=== PATIENT | female | born 1970 | race Caucasian/White ===

== ENCOUNTER → 2019-05-11 14:00 | Outpatient (CLI) | payer OTHER, SELFPAY ==
--- NOTE | 2019-05-11 | DI.RAD.S_ITS ---
PROCEDURE: XR LUMBAR SPINE 2-3V INDICATIONS: Acute midline low back pain TECHNIQUE: 3 views of the lumbar spine were acquired. COMPARISON: None. FINDINGS: Bones: 5 qsv-[id number]-cchsero vertebrae are present. Mild levocurvature. Trace multilevel retrolisthesis. Trace spondylolisthesis L4-L5. Multilevel disc degeneration, most notably at the L4-L5 and L5-S1 levels where there is moderate facet joint arthropathy. No vertebral body compression fractures. No suspicious bony lesions. Soft tissues: Overlying bowel gas pattern is normal. No suspicious soft tissue calcifications. IMPRESSION: Multilevel degenerative change. Dictated by: Jamie Montgomery [facility] Interpreted: Jeronimo Segura MD on 05/11/2019 at 17:01 Approved by: Jeronimo Segura M.D. on 05/12/2019 at 9:03
== END ==
PROVIDERS: Visit Provider Nurse Practitioner Family
DX: M54.5 Low back pain (principal); M47.26 Other spondylosis with radiculopathy, lumbar region; M47.27 Other spondylosis with radiculopathy, lumbosacral region
CPT/HCPCS: 72100

== ENCOUNTER → 2019-09-14 11:40 | Outpatient (CLI) | payer OTHER, SELFPAY ==
--- NOTE | 2019-09-14 | DI.MG.S_ITS ---
BILATERAL DIGITAL SCREENING MAMMOGRAM 3D/2D WITH CAD: 09/14/2019 CLINICAL: Routine screening. Family history of breast cancer. Comparison is made to exams dated: 09/04/2015 mammogram - [facility], 06/14/2013 mammogram, and 07/15/2011 mammogram - [facility]. The tissue of both breasts is heterogeneously dense. This may lower the sensitivity of mammography. Current study was also evaluated with a Computer Aided Detection (CAD) system. There are grouped fine calcifications in the left breast at 12 o'clock posterior depth. No other significant masses, calcifications, or other findings are seen in either breast. IMPRESSION: INCOMPLETE: NEEDS ADDITIONAL IMAGING EVALUATION The grouped fine calcifications in the left breast are indeterminate. Mediolateral, spot magnification, and additional views are recommended. This exam was interpreted at Station ID: [id number]. NOTE: For mammograms, a report in lay terms will be sent to the patient. Approximately 15% of breast malignancies will not be visualized mammographically. In the management of a palpable breast mass, a negative mammogram must not discourage biopsy of a clinically suspicious lesion. Electronically Signed By: Al brito/knenedi:09/14/2019 15:48:10 letter sent: Additional Imaging Needed ACR BI-RADS Category 0: Incomplete 3340F
== END ==
PROVIDERS: Visit Provider Obstetrics & Gynecology
DX: Z12.31 Encounter for screening mammogram for malignant neoplasm of breast (principal); Z80.3 Family history of malignant neoplasm of breast
CPT/HCPCS: 77063; 77067

== ENCOUNTER → 2019-11-23 10:30 | Outpatient (CLI) | payer OTHER, SELFPAY ==
--- NOTE | 2019-11-23 10:35 | DI.MG.S_ITS ---
UNILATERAL LEFT DIGITAL DIAGNOSTIC MAMMOGRAM 3D/2D WITH ADDITIONAL VIEWS: 11/23/2019 CLINICAL: Additional evaluation requested from prior study. Comparison is made to exams dated: 09/14/2019 mammogram, 09/04/2015 mammogram - [facility], 06/14/2013 mammogram, and 07/15/2011 mammogram - [facility]. The tissue of left breast is heterogeneously dense. This may lower the sensitivity of mammography. There are grouped fine pleomorphic calcifications in the left breast at 1 o'clock middle depth. These are seen in additional views. These calcifications are new compared to 2014. No other significant masses or calcifications are seen in the breast. IMPRESSION: SUSPICIOUS OF MALIGNANCY The grouped fine pleomorphic calcifications in the left breast are suspicious of malignancy. A stereotactic biopsy is recommended. Exam findings and recommendation were reviewed with the patient by Dr. Amado Albarran. This exam was interpreted at Station ID: [id number]. NOTE: For mammograms, a report in lay terms will be sent to the patient. Approximately 15% of breast malignancies will not be visualized mammographically. In the management of a palpable breast mass, a negative mammogram must not discourage biopsy of a clinically suspicious lesion. Electronically Signed By: Scotty Dickerson M.D. slc/:11/23/2019 11:54:01 letter sent: Biopsy Required ACR BI-RADS Category 4: Suspicious abnormality 3344F
== END ==
PROVIDERS: Visit Provider Obstetrics & Gynecology
DX: R92.8 Other abnormal and inconclusive findings on diagnostic imaging of breast (principal); R92.1 Mammographic calcification found on diagnostic imaging of breast
CPT/HCPCS: 77065; G0279

== ENCOUNTER → 2020-04-04 08:59 | Outpatient (CLI) | payer OTHER, SELFPAY ==
--- NOTE | 2020-04-04 | DI.RAD.S_ITS ---
PROCEDURE: XR CHEST 2V INDICATIONS: Cough TECHNIQUE: 2 views of the chest were acquired. COMPARISON: None. FINDINGS: Surgical changes and devices: None. Lungs and pleura: Lungs are clear. No pleural effusions or pneumothorax. Mediastinum: Mediastinal contours are normal. Heart size is normal. Bones and chest wall: No suspicious bony abnormalities. Soft tissues appear unremarkable. IMPRESSION: No acute cardiopulmonary abnormalities or focal airspace disease. Dictated by: Derrek Kebede M.D. on 04/04/2020 at 9:35 Approved by: Derrek Kebede M.D. on 04/04/2020 at 9:36
== END ==
PROVIDERS: Referring Provider Family Medicine; Visit Provider Family Medicine
DX: R05 Cough (principal)
CPT/HCPCS: 71046

== ENCOUNTER → 2020-10-03 10:22 | Outpatient (CLI) | payer OTHER, SELFPAY ==
--- NOTE | 2020-10-03 | DI.MG.S_ITS ---
BILATERAL DIGITAL SCREENING MAMMOGRAM 3D/2D WITH CAD: 10/03/2020 CLINICAL: Routine screening. Family history of breast cancer. Comparison is made to exams dated: 09/14/2019 mammogram, 09/04/2015 mammogram - [facility], and 06/14/2013 mammogram - [facility]. The tissue of both breasts is heterogeneously dense. This may lower the sensitivity of mammography. Current study was also evaluated with a Computer Aided Detection (CAD) system. There is a benign calcification in both breasts. There also are benign diffuse calcifications in both breasts. No significant masses, calcifications, or other findings are seen in either breast. There has been no significant interval change. IMPRESSION: BENIGN There is no mammographic evidence of malignancy. A 1 year screening mammogram is recommended. This exam was interpreted at Station ID: [id number]. NOTE: For mammograms, a report in lay terms will be sent to the patient. Approximately 15% of breast malignancies will not be visualized mammographically. In the management of a palpable breast mass, a negative mammogram must not discourage biopsy of a clinically suspicious lesion. Electronically Signed By: Andrey Hernandez acr/penrad:10/03/2020 11:12:29 copy to: Rachel Estrella letter sent: Normal Exam ACR BI-RADS Category 2: Benign Finding(s) 3342F
== END ==
PROVIDERS: PCP Family Medicine; Referring Provider Family Medicine; Visit Provider Family Medicine
DX: Z12.31 Encounter for screening mammogram for malignant neoplasm of breast (principal); Z80.3 Family history of malignant neoplasm of breast
CPT/HCPCS: 77063; 77067

== ENCOUNTER → 2021-11-27 08:57 | Outpatient (CLI) | payer OTHER, SELFPAY ==
--- NOTE | 2021-11-27 | DI.MG.S_ITS ---
BILATERAL DIGITAL SCREENING MAMMOGRAM 3D/2D WITH CAD: 11/27/2021 CLINICAL: Routine screening. Family history of breast cancer. Comparison is made to exams dated: 10/03/2020 mammogram, 09/14/2019 mammogram, and 09/04/2015 mammogram - [facility]. The tissue of both breasts is heterogeneously dense. This may lower the sensitivity of mammography. Current study was also evaluated with a Computer Aided Detection (CAD) system. There is a benign calcification in both breasts. There also are benign diffuse calcifications in both breasts. Additionally, there is a biopsy clip in the left breast. No significant masses, calcifications, or other findings are seen in either breast. There has been no significant interval change. IMPRESSION: BENIGN There is no mammographic evidence of malignancy. A 1 year screening mammogram is recommended. This exam was interpreted at Station ID: [id number]. NOTE: For mammograms, a report in lay terms will be sent to the patient. Approximately 15% of breast malignancies will not be visualized mammographically. In the management of a palpable breast mass, a negative mammogram must not discourage biopsy of a clinically suspicious lesion. Electronically Signed By: Cody oh/kennedi:11/27/2021 09:30:26 copy to: СВЕТЛАНА ROJAS letter sent: Normal Exam ACR BI-RADS Category 2: Benign Finding(s) 3342F
== END ==
PROVIDERS: PCP Family Medicine; Referring Provider Obstetrics & Gynecology; Visit Provider Obstetrics & Gynecology
DX: Z12.31 Encounter for screening mammogram for malignant neoplasm of breast (principal); Z80.3 Family history of malignant neoplasm of breast
CPT/HCPCS: 77063; 77067

== ENCOUNTER → 2022-09-17 11:01 | Outpatient (CLI) | payer OTHER, SELFPAY ==
--- NOTE | 2022-09-17 11:04 | DI.RAD.S_ITS ---
PROCEDURE: XR LUMBAR SPINE MIN 4V INDICATIONS: LOW BACK PAIN TECHNIQUE: 5 views of the lumbar spine acquired, including flexion and extension views. COMPARISON: [facility], CR, XR LUMBAR SPINE 2-3V, 05/11/2019, 14:14. [facility], CR, XR THORACIC SPINE 2 VIEWS, 02/26/2021, 10:31. FINDINGS: Bones: 5 nonrib-bearing vertebrae are present. There is grade 1 anterolisthesis of L4 on L5. No vertebral body compression fractures. No suspicious bony lesions. There is mild degenerative disc disease throughout the lumbar spine. Severe facet arthropathy at L4-L5 and L5-S1. Soft tissues: Overlying bowel gas pattern is normal. No suspicious soft tissue calcifications. Flexion/extension: There is decreased range of motion, with stable alignment. IMPRESSION: 1. Degenerative disc and facet disease in lumbar spine. 2. Grade 1 anterolisthesis of L4-L5. On flexion and extension, alignment is unchanged. Dictated by: Roshan Townsend M.D. on 09/17/2022 at 12:57 Approved by: Roshan Townsend M.D. on 09/17/2022 at 13:14
--- NOTE | 2022-09-17 11:04 | DI.RAD.S_ITS ---
PROCEDURE: XR THORACIC SPINE 2V INDICATIONS: BACK PAIN TECHNIQUE: 2 views of the thoracic spine were acquired. COMPARISON: None. FINDINGS: Bones: No fractures or dislocations. No suspicious bony lesions. 12 pairs of ribs are noted, and appear intact where visualized. Soft tissues: No paravertebral stripe thickening. IMPRESSION: Unremarkable thoracic spine radiographs Approved by: Kingsley Garcia M.D. on 09/17/2022 at 17:31
--- NOTE | 2022-09-17 11:04 | DI.RAD.S_ITS ---
PROCEDURE: XR CERVICAL SPINE 4V OR 5V INDICATIONS: NECK PAIN TECHNIQUE: 5 views of the cervical spine were acquired. COMPARISON: [facility], CR, XR CERVICAL SPINE 2 OR 3 VIEWS, 02/26/2021, 10:41. FINDINGS: Bones: No fractures or dislocations to the T1 level. No suspicious bony lesions. There is straightening of cervical curvature. Mild degenerative disc disease is present at C6-C7 and C7-T1. There is normal range of motion between flexion and extension, with preserved normal bony alignment. Soft tissues: Prevertebral soft tissues are normal in thickness. IMPRESSION: 1. Mild degenerative disc disease at C6-C7 and C7-T1. 2. Straightening of cervical curvature. 3. On flexion and extension, there is normal range of motion with preserved alignment. 4. If clinical symptoms persist, MRI is suggested for follow-up. Dictated by: Roshan Townsend M.D. on 09/17/2022 at 11:57 Approved by: Roshan Towsnend M.D. on 09/17/2022 at 12:21
== END ==
PROVIDERS: PCP Family Medicine; Referring Provider Family Medicine; Visit Provider Family Medicine
DX: M51.36 Other intervertebral disc degeneration, lumbar region (principal); M47.816 Spondylosis without myelopathy or radiculopathy, lumbar region; M50.323 Other cervical disc degeneration at C6-C7 level; M47.817 Spondylosis without myelopathy or radiculopathy, lumbosacral region; M43.16 Spondylolisthesis, lumbar region; M54.6 Pain in thoracic spine; M54.50 Low back pain, unspecified
CPT/HCPCS: 72050; 72070; 72110

== ENCOUNTER → 2022-12-10 15:51 | Outpatient (CLI) | payer OTHER, SELFPAY ==
--- NOTE | 2022-12-10 15:53 | DI.MG.S_ITS ---
BILATERAL DIGITAL SCREENING MAMMOGRAM 3D/2D WITH CAD: 12/10/2022 CLINICAL: Routine screening. Family history of breast cancer. Comparison is made to exams dated: 11/27/2021 mammogram, 10/03/2020 mammogram, and 09/14/2019 mammogram - [facility]. Both breasts are heterogeneously dense, which may obscure small masses (category c / 51-75% glandular tissue). Current study was also evaluated with a Computer Aided Detection (CAD) system. There is a benign calcification in both breasts. There also are benign diffuse calcifications in both breasts. Additionally, there is a biopsy clip in the left breast. No significant masses, calcifications, or other findings are seen in either breast. There has been no significant interval change. IMPRESSION: BENIGN There is no mammographic evidence of malignancy. A 1 year screening mammogram is recommended. Based on Tyrer-Cuzick model (a risk assessment model), the patient's lifetime risk is 43.1% and her 10 year risk is 13.3%. If a patient has an elevated risk, a more comprehensive evaluation should be considered and/or a referral to a genetic counselor. The [place] [employer], [employer] [employer], and NCCN Guidelines advise the consideration of Breast MRI as an adjunct to screening mammography in patients whose Lifetime risk to develop breast cancer is 20% or higher. This exam was interpreted at Station ID: [id number]. NOTE: For mammograms, a report in lay terms will be sent to the patient. Approximately 15% of breast malignancies will not be visualized mammographically. In the management of a palpable breast mass, a negative mammogram must not discourage biopsy of a clinically suspicious lesion. Electronically Signed By: Lauri Shipman M.D., jr/kennedi:12/11/2022 13:54:59 copy to: СВЕТЛАНА ROJAS letter sent: Normal Exam ACR BI-RADS Category 2: Benign Finding(s) 3342G
== END ==
PROVIDERS: PCP Family Medicine; Referring Provider Obstetrics & Gynecology; Visit Provider Obstetrics & Gynecology
DX: Z12.31 Encounter for screening mammogram for malignant neoplasm of breast (principal); Z80.3 Family history of malignant neoplasm of breast
CPT/HCPCS: 77063; 77067

== ENCOUNTER → 2023-12-22 10:23 | Outpatient (CLI) | payer OTHER, SELFPAY ==
--- NOTE | 2023-12-22 10:25 | DI.MG.S_ITS ---
BILATERAL DIGITAL SCREENING MAMMOGRAM 3D/2D WITH CAD: 12/22/2023 CLINICAL: Routine screening. Family history of breast cancer. Comparison is made to exams dated: 12/10/2022 mammogram, 11/27/2021 mammogram, and 10/03/2020 mammogram - [facility]. Both breasts are heterogeneously dense, which may obscure small masses (category c / 51-75% glandular tissue). Current study was also evaluated with a Computer Aided Detection (CAD) system. There is a focal asymmetry in the right breast central to the nipple middle depth. No other significant masses, calcifications, or other findings are seen in either breast. IMPRESSION: INCOMPLETE: NEEDS ADDITIONAL IMAGING EVALUATION The focal asymmetry in the right breast is indeterminate. Additional views with possible ultrasound are recommended. Based on Tyrer-Cuzick model (a risk assessment model), the patient's lifetime risk is 43.0% and her 10 year risk is 13.9%. If a patient has an elevated risk, a more comprehensive evaluation should be considered and/or a referral to a genetic counselor. The [place] [employer], [employer], and NCCN Guidelines advise the consideration of Breast MRI as an adjunct to screening mammography in patients whose Lifetime risk to develop breast cancer is 20% or higher. This exam was interpreted at Station ID: [id number]. NOTE: For mammograms, a report in lay terms will be sent to the patient. Approximately 15% of breast malignancies will not be visualized mammographically. In the management of a palpable breast mass, a negative mammogram must not discourage biopsy of a clinically suspicious lesion. Electronically Signed By: Diana patton/kennedi:12/22/2023 14:07:38 copy to: Rachel Estrella letter sent: Additional Imaging Needed ACR BI-RADS Category 0: Incomplete 3340F
== END ==
LOC: MAMMO 10:24
PROVIDERS: PCP Family Medicine; Referring Provider Family Medicine; Visit Provider Family Medicine
DX: Z12.31 Encounter for screening mammogram for malignant neoplasm of breast (principal); Z80.3 Family history of malignant neoplasm of breast; R92.333 Mammographic heterogeneous density, bilateral breasts
CPT/HCPCS: 77063; 77067

== ENCOUNTER → 2024-12-15 10:43 | Outpatient (CLI) | payer OTHER, SELFPAY ==
--- NOTE | 2024-12-15 10:45 | DI.RAD.S_ITS ---
PROCEDURE: XR DEXA AXIAL SKELETON INDICATIONS: ASYMPTOMATIC MENOPAUSAL STATE COMPARISON: None. FINDINGS: Lumbar Spine: Bone mineral density 0.973 g/cm2, T score -0.7. Left Femoral Neck: Bone mineral density 0.724 g/cm2, T score -1.1. Left Hip: Bone mineral density 0.925 g/cm2, T score -0.1. Fracture Risk Calculation (when applicable): 10-year fracture risk of a major osteoporotic fracture 5.7 percent and of a hip fracture 0.3 percent. (T score greater or equal to -1.0 to: NORMAL) (T score from -1.1 to -2.4: OSTEOPENIA) (T score less than or equal to -2.5: OSTEOPOROSIS) IMPRESSION: Osteopenia with increased 10 year fracture risk. Follow-up guidelines as follows: Osteoporosis: Consider a repeat DEXA and Vertebral Fracture Assessment (VFA) exam in 2 years or sooner if medically necessary, to reassess this patient's status. Osteopenia: Consider a repeat DEXA in 2-3 years to reassess this patient's status, or if there is a new clinical indication. Normal: Consider a repeat DEXA in 5 years or sooner, or if there is a new clinical indication. All treatment decisions require clinical judgment and consideration of individual patient factors, including patient preferences, comorbidities, previous drug use, risk factors not captured in the FRAX model (e.g., frailty, falls, vitamin D deficiency, increased bone turnover, interval significant decline in bone density ) and possible under- or over-estimation of fracture risk by FRAX. In addition, the NOF Guide recommends that FDA-approved medical therapies be considered in postmenopausal women and men age >= 50 years with a: * Hip or vertebral (clinical or morphometric) fracture * T-score of <=-2.5 at the spine or hip * Ten-year fracture probability by FRAX of >= 3% for hip fracture or >=20% for major osteoporotic fracture. Dictated by: Erickson Mclean M.D. on 12/15/2024 at 14:17 Approved by: Erickson Mclean M.D. on 12/15/2024 at 14:18
== END ==
LOC: RAD 10:44
PROVIDERS: PCP Family Medicine; Referring Provider Family Medicine; Visit Provider Family Medicine
DX: M85.852 Other specified disorders of bone density and structure, left thigh (principal); Z78.0 Asymptomatic menopausal state
CPT/HCPCS: 77080

== ENCOUNTER → 2025-01-17 10:39 | Outpatient (CLI) | payer OTHER, SELFPAY ==
--- NOTE | 2025-01-17 10:40 | DI.MG.S_ITS ---
MM screening mammo BI: 01/17/2025. BI-RADS: 0 CLINICAL: 54-year old female for bilateral screening mammogram. Tyrer-Cuzick lifetime risk of 18.1%. No personal or first-degree family history of breast cancer. Current reported family history of breast cancer: maternal grandmother and maternal aunt. The patient had a prior left breast biopsy. PRIOR EXAMS 01/06/2024, 12/22/2023, 12/10/2022, 11/27/2021, 10/03/2020, 12/04/2019, 11/23/2019, 09/14/2019, 09/04/2015. MAMMOGRAPHY TECHNIQUE: 2D and 3D (tomosynthesis) digital mammographic views obtained, with additional images as needed for full coverage. Current study was also evaluated with a Computer Aided Detection (CAD) system. DENSITY C. The breasts are heterogeneously dense, which may obscure small masses. MAMMOGRAPHY FINDINGS Right: CC only, Central, Posterior depth, measuring 0.5 cm: Asymmetry needing additional imaging evaluation. Left: Biopsy marker present on the left. There are no suspicious masses, calcifications, or other findings in the breast. IMPRESSION: Right (Asymmetry): CC only, Central, Posterior depth, measuring 0.5 cm * Incomplete - asymmetry needing additional imaging evaluation. Left * No evidence of malignancy with benign findings. RECOMMENDATIONS Right: CC only, Central, Posterior depth * Further evaluation with diagnostic mammography and diagnostic ultrasound. OVERALL ASSESSMENT CATEGORY BI-RADS-0: Incomplete - Need Additional Imaging Evaluation. ELECTRONICALLY SIGNED: Anastacia Li M.D. on 01/17/2025 at 04:50:22 PM PT Interpreting Station ID: [id number]
== END ==
PROVIDERS: PCP Family Medicine; Referring Provider Family Medicine; Visit Provider Family Medicine
DX: Z12.31 Encounter for screening mammogram for malignant neoplasm of breast (principal); Z80.3 Family history of malignant neoplasm of breast; N64.89 Other specified disorders of breast
CPT/HCPCS: 77063; 77067

== ENCOUNTER → 2025-09-19 10:09 | Outpatient (CLI) | payer OTHER, SELFPAY ==
--- NOTE | 2025-09-19 | DI.RAD.S_ITS ---
PROCEDURE: XR THORACIC SPINE 2V INDICATIONS: MIDLINE THORACIC PAIN TECHNIQUE: 2 views of the thoracic spine were acquired. COMPARISON: [facility], CR, XR THORACIC SPINE 2V, 09/17/2022, 11:17. FINDINGS: Bones: No fractures or dislocations. No suspicious bony lesions. 12 pairs of ribs are noted, and appear intact where visualized. Soft tissues: No paravertebral stripe thickening. IMPRESSION: No acute bony abnormality. If clinical symptoms persist, consider MRI of the thoracic spine without contrast. Dictated by: Omer Membreno M.D. on 09/20/2025 at 8:07 Approved by: Omer Membreno M.D. on 09/20/2025 at 8:08
--- NOTE | 2025-09-19 10:12 | DI.MRI.S_ITS ---
PROCEDURE: MR LUMBAR SPINE WO CON INDICATIONS: Radiculopathy, lumbosacral region TECHNIQUE: Noncontrast sagittal T1 spin echo and T2 fast echo, sagittal STIR, and T2 fast spin echo through the lumbar spine. In cases with scoliosis, additional coronal T2 fast spin echo may be performed. COMPARISON: None. FINDINGS: Image quality: Excellent. Alignment and Curvature: There is 5 millimeters of L4-L5 anterolisthesis secondary to facet hypertrophy. Bone Marrow: Marrow is of normal overall signal. No acute vertebral body compression fractures. Spinal Cord: Conus medullaris terminates at the L1 level. Visualized cord demonstrates normal signal and size. Paraspinous Soft Tissues: No paravertebral masses. T12-L1: Normal appearance. L1-L2: Loss of disc signal. Mild, diffuse disc bulge. No central stenosis. No neural foraminal narrowing. No neural compression. L2-L3: Loss of disc signal. Mild, diffuse disc bulge. Mild bilateral facet hypertrophy. Mild narrowing of the central canal. No neural foraminal narrowing. No neural compression. L3-L4: Loss of disc signal. Mild, diffuse disc bulge. Ihmq-ao-txgnkold bilateral facet hypertrophy. Mild to moderate narrowing of the central canal. Mild bilateral neural foraminal narrowing. No neural compression. Left foraminal disc annulus fissure. L4-L5: Loss of disc signal. Mild, diffuse disc bulge. Severe bilateral facet hypertrophy. Moderate ligamentum flavum hypertrophy. Severe narrowing of the central canal with compression of the nerve roots of the cauda equina. Mild bilateral neural foraminal narrowing. Posterior disc annulus fissures. L5-S1: Loss of disc signal. Mild, diffuse disc bulge. Moderate bilateral facet hypertrophy. Mild narrowing of the central canal. Mild left neural foraminal narrowing. No neural compression. Right posterior disc annulus fissure. S2-S3 Tarlov cysts. IMPRESSION: Grade 1 L4-L5 degenerative spondylolisthesis. Multilevel degenerative disc disease. Multilevel facet arthropathy. Severe L4-L5 central canal stenosis with compression of the nerve roots of the cauda equina. No severe neural foraminal stenosis. Dictated by: Kiersten Villanueva MD, PhD on 09/19/2025 at 12:37 Approved by: Kiersten Villanueva MD, PhD on 09/19/2025 at 12:41
--- NOTE | 2025-09-19 10:12 | DI.RAD.S_ITS ---
PROCEDURE: XR LUMBAR SPINE MIN 4V INDICATIONS: Radiculopathy, lumbosacral region TECHNIQUE: 5 views of the lumbar spine acquired, including flexion and extension views. COMPARISON: [facility], CR, XR LUMBAR SPINE MIN 4V, 09/17/2022, 11:17. [facility], CR, XR LUMBAR SPINE 2-3V, 05/11/2019, 14:14. FINDINGS: Bones: 5 nonrib-bearing vertebrae are present. Lumbar levoscoliosis centered at L1-2. Moderate adynamic anterolisthesis of L4 on L5. Moderate spondylosis of L4-5. Mild inferior lumbar facet arthrosis.. No vertebral body compression fractures. No suspicious bony lesions. Soft tissues: Overlying bowel gas pattern is normal. No suspicious soft tissue calcifications. Flexion/extension: Decreased range of motion of the inferior lumbar spine which may be secondary to back spasm. No dynamic instability. IMPRESSION: Moderate adynamic anterolisthesis of L4 on L5. Lumbar levoscoliosis. Moderate inferior lumbar predominant spondylosis. Dictated by: Omer Membreno M.D. on 09/20/2025 at 8:08 Approved by: Omer Membreno M.D. on 09/20/2025 at 8:10
== END ==
LOC: MRI 10:10
PROVIDERS: PCP Family Medicine; Referring Provider Family Medicine; Visit Provider Family Medicine
DX: M47.26 Other spondylosis with radiculopathy, lumbar region (principal); M43.16 Spondylolisthesis, lumbar region; M54.6 Pain in thoracic spine; G89.29 Other chronic pain; M41.9 Scoliosis, unspecified
CPT/HCPCS: 72070; 72110; 72148

== ENCOUNTER → 2025-10-06 10:45 | Outpatient (CLI) | payer OTHER, SELFPAY ==
--- NOTE | 2025-10-06 10:46 | DI.MRI.S_ITS ---
PROCEDURE: MR THORACIC SPINE WO CON INDICATIONS: Other chronic pain TECHNIQUE: Noncontrast sagittal T1 spine echo and T2 fast spin echo, sagittal STIR, and T2 fast spin echo through the thoracic spine. COMPARISON: None. FINDINGS: Image quality: Motion artifact. Alignment and Curvature: There is normal bony alignment. Bone Marrow: Marrow is of normal overall signal. No acute vertebral body compression fractures. Spinal Cord: Visualized spinal cord is normal in size and signal. Paraspinous Soft Tissues: Cystic structure adjacent to the T3 vertebral body on the right measuring 0.8 x 1.9 x 1.0 cm. Miscellaneous: Mild multilevel disc desiccation and tiny posterior disc bulges. No significant central canal or neural foraminal stenosis. Several small perineural cysts are noted. IMPRESSION: Mild degenerative changes of the thoracic spine without central canal or neural foraminal stenosis. Simple appearing cystic structure to the right of the T3 vertebral body measuring 0.8 x 1.9 x 1.0 cm of uncertain etiology. Consider follow-up imaging to assess stability. Dictated by: Carroll Da Silva M.D. on 10/07/2025 at 19:51 Approved by: Carroll Da Silva M.D. on 10/07/2025 at 19:53
== END ==
LOC: MRI 10:46
PROVIDERS: PCP Family Medicine; Referring Provider Family Medicine; Visit Provider Family Medicine
DX: M47.814 Spondylosis without myelopathy or radiculopathy, thoracic region (principal); M54.6 Pain in thoracic spine; G89.29 Other chronic pain
CPT/HCPCS: 72146